=== PATIENT | male | born 1980 | race African-American/Black ===

== ENCOUNTER 2019-06-07 10:19 | Inpatient (IN) ==
[2019-06-07] MEDS ORDERED: PANTOPRAZOLE 40 MG VIAL IV STA (10:51)
[2019-06-07] MEDS ORDERED: ALBUTEROL/IPRATROPIUM 3 ML NEB RESP TX STA (10:51)
[2019-06-07 12:20] LABS: Basophils # 0.1 10*3/uL (0.0-0.2); Eosinophils # 0.2 10*3/uL (0.0-0.87); Eosinophils % 2.8 % (0.00-10.9); Hematocrit 31.5 VOL% (42.0-52.0); Hemoglobin 9.8 GM/DL (14.0-18.0); Immature Granulocytes % 0.2 %; Immature Granulocytes Absolute 0.01 #; Lymphocytes # 1.7 10*3/uL (1.4-4.0); Lymphocytes % 27.2 % (21.2-54.2); Mean Corpuscular HGB Conc 31.1 GM/DL (32-36); Mean Corpuscular Volume 89.5 FL (87-102); Mean Platelet Volume 10.9 FL (9.6-12.0); Monocytes % 10.3 % (1.7-12.7); Neutrophils % 58.5 % (38.7-73.9); Platelet Count 240 T/CUMM (130-400); Red Blood Count 3.52 MC/CUMM (3.8-5.5); Red Cell Distribution Width 14.9 % (9.3-17.3); White Blood Count 6.1 T/CUMM (4-12)
[2019-06-07 12:21] LABS: Apearance,Urine CLEAR (Clear); Bilirubin,Urine Negative (Negative); Blood, Urine Negative (Negative); Glucose,Urine (UA) 150 mg/dL (Negative); Ketones,Urine Negative (Negative); Mucus,Urine Occasional /LPF (Occasional); Nitrite,Urine Negative (Negative); Protein,Urine Negative; RBC,Urine 2 /HPF (0-4); Squamous Epithelial Cell,Urine Occasional /HPF (0-10); Urine Color Yellow (Yellow); Urine Specific Gravity 1.017 (1.001-1.035); Urine Urobilinogen < 2.0 EU/DL (0.2-1.0); WBC,Urine <1 /HPF (0-6)
[2019-06-07 12:25] LABS: Barbiturates Screen,Urine Negative (Negative); Benzodiazepines Screen,Urine Positive (Negative); Cannabinoid Screen,Urine Positive (Negative); Opiate Screen,Urine Negative (Negative); Phencyclidine Screen,Urine Negative (Negative)
[2019-06-07 12:49] LABS: Alanine Aminotransferase 27 U/L (16-61); Albumin 2.6 G/DL (3.4-5.0); Alkaline Phosphatase 50 U/L (45-117); Aspartate Amino Transferase 13 U/L (0-37); Bilirubin,Total < 0.39 MG/DL (0.2-1.0); Blood Urea Nitrogen 12 MG/DL (7-18); Calcium 7.5 MG/DL (8.5-10.1); Estimated Glom Filtration Rate 162 ML/MIN; Glucose 170 MG/DL (74-106); Total Protein 5.5 G/DL (6.4-8.3)
[2019-06-07] MEDS ORDERED: ACETAMINOPHEN 325 MG TABLET PO PRN (14:19)
[2019-06-07] MEDS ORDERED: ONDANSETRON 4 MG/2 ML VIAL IV PRN (14:19)
[2019-06-07] MEDS ORDERED: ALBUTEROL 2.5 MG/3 ML NEB RESP TX PRN (14:27)
[2019-06-07] MEDS ORDERED: cefTRIAXone 1,000 MG in SYRINGE 1 EACH IV SCH (14:30)
[2019-06-07] MEDS ORDERED: AZITHROMYCIN INJ 500 MG in SODIUM CHLORIDE 0.9% 250 ML IV SCH (14:30)
[2019-06-07] MEDS ORDERED: ENOXAPARIN 40 MG/0.4 ML SYRINGE SUBCUT SCH (15:00)
[2019-06-07 15:19] LABS: Risk Ratio 3.22; Thyroid Stimulating Hormone 1.03 uIU/ml (0.358-3.74)
[2019-06-07] MEDS ORDERED: SODIUM CHLORIDE 0.9% 100 ML IV ONE (15:28)
[2019-06-07 15:45] LABS: % Iron Saturation 6.6 % (18-50)
[2019-06-07] MEDS ORDERED: FUROSEMIDE 40 MG/4 ML VIAL IV SCH (16:00)
[2019-06-07] MEDS: BENZONATATE 100 MG CAPSULE PO SCH ×2 (16:49→21:48)
[2019-06-07] MEDS: methylPREDNISolone SOD SUC 125 MG/2 ML VIAL IV SCH (17:01)
[2019-06-07] MEDS: hydrALAZINE 20 MG/1 ML VIAL IV PRN (17:06)
[2019-06-07 17:20] LABS: Basophils # 0.1 10*3/uL (0.0-0.2); Basophils % 0.9 % (0.0-0.8); Eosinophils # 0.2 10*3/uL (0.0-0.87); Eosinophils % 2.8 % (0.00-10.9); Hematocrit 32.2 VOL% (42.0-52.0); Hemoglobin 9.8 GM/DL (14.0-18.0); Immature Granulocytes % 0.7 %; Immature Granulocytes Absolute 0.04 #; Lymphocytes # 1.6 10*3/uL (1.4-4.0); Lymphocytes % 28.7 % (21.2-54.2); Mean Corpuscular HGB Conc 30.4 GM/DL (32-36); Mean Platelet Volume 11.5 FL (9.6-12.0); Monocytes % 11.9 % (1.7-12.7); Platelet Count 235 T/CUMM (130-400); Red Blood Count 3.54 MC/CUMM (3.8-5.5); Red Cell Distribution Width 15.1 % (9.3-17.3); White Blood Count 5.7 T/CUMM (4-12)
[2019-06-07 17:58] LABS: Folate 10.4 NG/ML (5.4-24.0); Vitamin B12 300 PG/ML (211-911)
[2019-06-07 18:17] LABS: Sedimentation Rate-Westergren 22 MM/HR (0-15)
[2019-06-07] MEDS: ALBUTEROL 2.5 MG/3 ML NEB RESP TX SCH (18:20)
[2019-06-07 23:12] LABS: Hematocrit 33.7 VOL% (42.0-52.0); Hemoglobin 10.7 GM/DL (14.0-18.0)
[2019-06-08] MEDS: ALBUTEROL 2.5 MG/3 ML NEB RESP TX SCH ×2 (00:06→07:34)
[2019-06-08] MEDS: hydrALAZINE 20 MG/1 ML VIAL IV PRN (00:54)
[2019-06-08] MEDS: methylPREDNISolone SOD SUC 125 MG/2 ML VIAL IV SCH (03:54)
[2019-06-08 06:21] LABS: Basophils % 0.2 % (0.0-0.8); Hematocrit 34.8 VOL% (42.0-52.0); Immature Granulocytes % 0.4 %; Immature Granulocytes Absolute 0.04 #; Lymphocytes # 0.7 10*3/uL (1.4-4.0); Lymphocytes % 7.2 % (21.2-54.2); Mean Corpuscular HGB Conc 31.6 GM/DL (32-36); Mean Corpuscular Volume 87.9 FL (87-102); Mean Platelet Volume 11.5 FL (9.6-12.0); Monocytes % 0.6 % (1.7-12.7); Neutrophils % 91.6 % (38.7-73.9); Platelet Count 225 T/CUMM (130-400); Red Blood Count 3.96 MC/CUMM (3.8-5.5); Red Cell Distribution Width 14.7 % (9.3-17.3); White Blood Count 9.4 T/CUMM (4-12)
[2019-06-08 06:41] LABS: Lymphocytes 8 % (20-55); Platelet Estimate Adequate; Segmented Neutrophils 91 % (50-85); Total Cells Counted 100
[2019-06-08 06:42] LABS: Hypochromasia 1+
[2019-06-08 06:54] LABS: Calcium 8.5 MG/DL (8.5-10.1); Osmolality,Calculated 283.3 MOS/KG (273-304)
[2019-06-08 07:48] VITALS: BP 170/118
[2019-06-08] MEDS ORDERED: PANTOPRAZOLE 40 MG TABLET PO SCH (09:00)
[2019-06-09] MEDS ORDERED: AZITHROMYCIN 250 MG TABLET PO SCH (09:00)
[2019-06-09 09:13] LABS: Hemoglobin A1 (Alkaline) 98.2 % (96.5-98.5); Hemoglobin A2 (Alkaline) 1.8 % (1.5-3.5)
== END 2019-06-08 09:45 | disposition left against medical advice (07) | DRG 377 ==
LOC: N.ED 10:19 → N.EDINP 14:19 → N.5E 14:57
PROVIDERS: ADMIT Internal Medicine; ATTEND Internal Medicine

== ENCOUNTER 2019-06-22 16:00 | Inpatient (IN) ==
[2019-06-22] MEDS ORDERED: methylPREDNISolone SOD SUC 125 MG/2 ML VIAL IV STA (16:41)
[2019-06-22] MEDS ORDERED: NITROGLYCERIN 2% OINT 1 INCH/GM PACK TOP STA (16:41)
[2019-06-22] MEDS ORDERED: FUROSEMIDE 100 MG/10 ML VIAL IV STA (16:41)
[2019-06-22] MEDS ORDERED: hydrALAZINE 20 MG/1 ML VIAL IV STA (16:41)
[2019-06-22] MEDS ORDERED: cefTRIAXone 1,000 MG in SODIUM CHLORIDE 0.9% 100 ML IV STA (16:41)
[2019-06-22] MEDS ORDERED: AZITHROMYCIN INJ 500 MG in SODIUM CHLORIDE 0.9% 250 ML IV STA (16:41)
[2019-06-22] MEDS ORDERED: ALBUTEROL 2.5 MG/3 ML NEB RESP TX SCH (17:00)
[2019-06-22 17:18] LABS: ABG Base Excess 4.2 MMOL/L (-2.5-2.5); ABG HCO3 28.2 MMOL/L (20-26); ABG Oxygen Saturation 98.9 % (95-100); ABG PCO2 44.1 MM HG (35-48); ABG PH 7.428 (7.35-7.45); ABG TCO2 26.2 MMOL/L (23-27)
[2019-06-22 18:05] LABS: Basophils # 0.1 10*3/uL (0.0-0.2); Basophils % 0.6 % (0.0-0.8); Eosinophils # 0.3 10*3/uL (0.0-0.87); Hematocrit 33.6 VOL% (42.0-52.0); Hemoglobin 10.2 GM/DL (14.0-18.0); Immature Granulocytes % 0.5 %; Immature Granulocytes Absolute 0.08 #; Lymphocytes % 13.7 % (21.2-54.2); Mean Corpuscular HGB Conc 30.4 GM/DL (32-36); Mean Corpuscular Volume 87.5 FL (87-102); Mean Platelet Volume 10.8 FL (9.6-12.0); Monocytes % 8.6 % (1.7-12.7); Neutrophils % 74.6 % (38.7-73.9); Platelet Count 269 T/CUMM (130-400); Red Blood Count 3.84 MC/CUMM (3.8-5.5); Red Cell Distribution Width 14.8 % (9.3-17.3); White Blood Count 14.7 T/CUMM (4-12)
[2019-06-22 18:16] LABS: INR 1.1; Partial Thromboplastin Time 23.3 SECS (20.8-36.0)
[2019-06-22 18:23] LABS: Alanine Aminotransferase 30 U/L (16-61); Albumin 2.9 G/DL (3.4-5.0); Alkaline Phosphatase 65 U/L (45-117); Aspartate Amino Transferase 11 U/L (0-37); Blood Urea Nitrogen 13 MG/DL (7-18); Calcium 8.2 MG/DL (8.5-10.1); Estimated Glom Filtration Rate 147 ML/MIN; Glucose 151 MG/DL (74-106); Osmolality,Calculated 277.7 MOS/KG (273-304); Total Protein 6.4 G/DL (6.4-8.3)
[2019-06-22 18:24] LABS: Troponin I 0.051 NG/ML (0.00-0.045)
[2019-06-22 19:23] LABS: Apearance,Urine CLEAR (Clear); Bilirubin,Urine Negative (Negative); Blood, Urine Negative (Negative); Glucose,Urine (UA) Negative (Negative); Ketones,Urine Negative (Negative); Nitrite,Urine Negative (Negative); Protein,Urine Negative; RBC,Urine 1 /HPF (0-4); Squamous Epithelial Cell,Urine Occasional /HPF (0-10); Urine Color Straw (Yellow); Urine Specific Gravity 1.005 (1.001-1.035); Urine Urobilinogen < 2.0 EU/DL (0.2-1.0)
[2019-06-22 19:31] LABS: Barbiturates Screen,Urine Negative (Negative); Benzodiazepines Screen,Urine Negative (Negative); Cannabinoid Screen,Urine Positive (Negative); Opiate Screen,Urine Negative (Negative); Phencyclidine Screen,Urine Negative (Negative)
[2019-06-22] MEDS ORDERED: POTASSIUM CHLORIDE 20 MEQ TABLET PO STA (20:50)
[2019-06-22] MEDS ORDERED: GLUCAGON 1 MG VIAL IM PRN (22:15)
[2019-06-22] MEDS ORDERED: ALBUTEROL 2.5 MG/3 ML NEB RESP TX PRN (22:15)
[2019-06-22] MEDS ORDERED: ONDANSETRON 4 MG/2 ML VIAL IV PRN (22:15)
[2019-06-22] MEDS ORDERED: POTASSIUM CHLORIDE 20 MEQ TABLET PO PRN (22:15)
[2019-06-22] MEDS ORDERED: DOCUSATE SODIUM 100 MG CAPSULE PO PRN (22:15)
[2019-06-22] MEDS ORDERED: DEXTROSE 50% 25 GM/50 ML VIAL IV PRN (22:15)
[2019-06-22] MEDS ORDERED: MAGNESIUM SULF RIDER 4 GM in PREMIX 1 EACH IV PRN (22:15)
[2019-06-22] MEDS ORDERED: hydrALAZINE 20 MG/1 ML VIAL IV PRN (22:15)
[2019-06-22] MEDS ORDERED: MAGNESIUM SULF RIDER 2 GM in PREMIX 1 EACH IV PRN (22:15)
[2019-06-22] MEDS ORDERED: ACETAMINOPHEN 325 MG TABLET PO PRN (22:15)
[2019-06-22] MEDS ORDERED: methylPREDNISolone SOD SUC 40 MG/1 ML VIAL ONE (22:54)
[2019-06-22] MEDS: carvediloL 12.5 MG TABLET PO SCH (23:04)
[2019-06-22] MEDS: INSULIN REGULAR 100 UNIT/ML SUBCUT SCH (23:04)
[2019-06-22] MEDS: guaiFENesin/DM ER 600-30 MG TABLET PO SCH (23:04)
[2019-06-22] MEDS: lisinopriL 10 MG TABLET PO SCH (23:04)
[2019-06-22] MEDS: ATORVASTATIN 10 MG TABLET PO SCH (23:04)
[2019-06-22] MEDS: ENOXAPARIN 40 MG/0.4 ML SYRINGE SUBCUT SCH (23:05)
[2019-06-22] MEDS: LEVOFLOXACIN INJ 750 MG in PREMIX 1 EACH IV SCH (23:05)
[2019-06-22] MEDS: ALBUTEROL/IPRATROPIUM 3 ML NEB RESP TX SCH (23:30)
[2019-06-23 01:53] LABS: Basophils % 0.3 % (0.0-0.8); Hematocrit 33.6 VOL% (42.0-52.0); Hemoglobin 10.6 GM/DL (14.0-18.0); Immature Granulocytes % 0.7 %; Lymphocytes # 0.3 10*3/uL (1.4-4.0); Lymphocytes % 2.5 % (21.2-54.2); Mean Corpuscular HGB Conc 31.5 GM/DL (32-36); Mean Corpuscular Volume 85.7 FL (87-102); Monocytes % 0.6 % (1.7-12.7); NRBC # 0.02 10*3/uL; Neutrophils % 95.9 % (38.7-73.9); Platelet Count 279 T/CUMM (130-400); Red Blood Count 3.92 MC/CUMM (3.8-5.5); White Blood Count 13.9 T/CUMM (4-12)
[2019-06-23 02:11] LABS: % Iron Saturation 5.2 % (18-50); Calcium 8.4 MG/DL (8.5-10.1); Ferritin 43.3 ng/ml (26-388); Osmolality,Calculated 287.4 MOS/KG (273-304); Risk Ratio 2.3
[2019-06-23 02:48] LABS: Lymphocytes 4 % (20-55); Segmented Neutrophils 96 % (50-85); Total Cells Counted 100
[2019-06-23 02:49] LABS: Anisocytosis 1+; Platelet Estimate Normal; Target Cells Few
[2019-06-23 03:06] LABS: Sedimentation Rate-Westergren 15 MM/HR (0-15)
[2019-06-23 05:05] LABS: Vitamin B12 405 PG/ML (211-911)
[2019-06-23] MEDS: hydrALAZINE 20 MG/1 ML VIAL IV PRN ×3 (05:26→16:23)
[2019-06-23] MEDS: methylPREDNISolone SOD SUC 40 MG/1 ML VIAL IV SCH ×2 (05:26→17:00)
[2019-06-23] MEDS: ALBUTEROL/IPRATROPIUM 3 ML NEB RESP TX SCH ×3 (07:46→19:50)
[2019-06-23 08:44] LABS: Hemoglobin A1 (Alkaline) 97.1 % (96.5-98.5); Hemoglobin A2 (Alkaline) 2.9 % (1.5-3.5)
[2019-06-23] MEDS: ASPIRIN EC 81 MG TABLET PO SCH (08:52)
[2019-06-23] MEDS: FUROSEMIDE 40 MG/4 ML VIAL IV SCH ×2 (08:52→16:22)
[2019-06-23] MEDS: INSULIN REGULAR 100 UNIT/ML SUBCUT SCH ×4 (08:52→21:53)
[2019-06-23] MEDS: guaiFENesin/DM ER 600-30 MG TABLET PO SCH ×2 (08:52→21:54)
[2019-06-23] MEDS: carvediloL 12.5 MG TABLET PO SCH (08:52)
[2019-06-23] MEDS: lisinopriL 10 MG TABLET PO SCH (08:52)
[2019-06-23] MEDS ORDERED: lisinopriL 10 MG TABLET PO SCH (15:36)
[2019-06-23] MEDS: carvediloL 25 MG TABLET PO SCH (16:23)
[2019-06-23] MEDS: diphenhydrAMINE CAP 25 MG CAPSULE PO SCH ×2 (18:18→23:21)
[2019-06-23] MEDS: ATORVASTATIN 10 MG TABLET PO SCH (21:54)
[2019-06-23] MEDS: FERROUS SULFATE 325 MG TABLET PO SCH (21:54)
[2019-06-23] MEDS: NORTRIPTYLINE 25 MG CAPSULE PO SCH (21:54)
[2019-06-23] MEDS: RANITIDINE 150 MG TABLET PO SCH (21:54)
[2019-06-23] MEDS: ENOXAPARIN 40 MG/0.4 ML SYRINGE SUBCUT SCH ×2 (21:55→21:58)
[2019-06-23] MEDS: LEVOFLOXACIN INJ 750 MG in PREMIX 1 EACH IV SCH (23:22)
[2019-06-24] MEDS: ALBUTEROL/IPRATROPIUM 3 ML NEB RESP TX SCH ×5 (01:10→19:23)
[2019-06-24] MEDS: diphenhydrAMINE CAP 25 MG CAPSULE PO SCH ×4 (05:08→23:32)
[2019-06-24] MEDS: methylPREDNISolone SOD SUC 40 MG/1 ML VIAL IV SCH ×2 (05:08→17:14)
[2019-06-24 06:42] LABS: Basophils % 0.1 % (0.0-0.8); Hemoglobin 10.6 GM/DL (14.0-18.0); Immature Granulocytes Absolute 0.18 #; Lymphocytes # 0.7 10*3/uL (1.4-4.0); Lymphocytes % 3.9 % (21.2-54.2); Mean Corpuscular HGB Conc 31.2 GM/DL (32-36); Mean Corpuscular Volume 85.4 FL (87-102); Mean Platelet Volume 11.4 FL (9.6-12.0); Monocytes % 4.3 % (1.7-12.7); NRBC # 0.02 10*3/uL; Neutrophils % 90.7 % (38.7-73.9); Platelet Count 303 T/CUMM (130-400); Red Blood Count 3.98 MC/CUMM (3.8-5.5); Red Cell Distribution Width 14.9 % (9.3-17.3)
[2019-06-24 07:12] LABS: Calcium 8.8 MG/DL (8.5-10.1); Osmolality,Calculated 284.3 MOS/KG (273-304)
[2019-06-24 07:39] LABS: Hypochromasia 1+; Lymphocytes 1 % (20-55); Microcytosis 1+; Polychromasia Slight; Segmented Neutrophils 94 % (50-85); Total Cells Counted 100
[2019-06-24 07:40] LABS: Ovalocytes Few
[2019-06-24 07:41] LABS: Platelet Estimate Normal
[2019-06-24] MEDS ORDERED: hydrALAZINE 25 MG TABLET ONE (08:23)
[2019-06-24] MEDS: INSULIN REGULAR 100 UNIT/ML SUBCUT SCH ×4 (09:24→21:51)
[2019-06-24] MEDS: FUROSEMIDE 40 MG/4 ML VIAL IV SCH ×2 (09:28→16:16)
[2019-06-24] MEDS: guaiFENesin/DM ER 600-30 MG TABLET PO SCH ×2 (09:28→21:52)
[2019-06-24] MEDS: ASPIRIN EC 81 MG TABLET PO SCH (09:28)
[2019-06-24] MEDS: FERROUS SULFATE 325 MG TABLET PO SCH ×2 (09:28→21:51)
[2019-06-24] MEDS: carvediloL 25 MG TABLET PO SCH ×2 (09:28→16:16)
[2019-06-24] MEDS: ISOSORBIDE MONONITRATE 30 MG TABLET PO SCH (09:28)
[2019-06-24] MEDS: RANITIDINE 150 MG TABLET PO SCH ×2 (09:46→21:52)
[2019-06-24] MEDS: NORTRIPTYLINE 25 MG CAPSULE PO SCH (21:52)
[2019-06-24] MEDS: ATORVASTATIN 10 MG TABLET PO SCH (21:52)
[2019-06-24] MEDS: ENOXAPARIN 40 MG/0.4 ML SYRINGE SUBCUT SCH (21:53)
[2019-06-24] MEDS: LEVOFLOXACIN INJ 750 MG in PREMIX 1 EACH IV SCH (23:32)
[2019-06-25] MEDS: ALBUTEROL/IPRATROPIUM 3 ML NEB RESP TX SCH ×2 (00:10→07:46)
[2019-06-25] MEDS: diphenhydrAMINE CAP 25 MG CAPSULE PO SCH ×2 (05:32→12:55)
[2019-06-25] MEDS: methylPREDNISolone SOD SUC 40 MG/1 ML VIAL IV SCH (05:32)
[2019-06-25] MEDS: guaiFENesin/DM ER 600-30 MG TABLET PO SCH (09:12)
[2019-06-25] MEDS: ASPIRIN EC 81 MG TABLET PO SCH (09:12)
[2019-06-25] MEDS: RANITIDINE 150 MG TABLET PO SCH (09:12)
[2019-06-25] MEDS: INSULIN REGULAR 100 UNIT/ML SUBCUT SCH ×2 (09:12→12:55)
[2019-06-25] MEDS: FERROUS SULFATE 325 MG TABLET PO SCH (09:12)
[2019-06-25] MEDS: ISOSORBIDE MONONITRATE 30 MG TABLET PO SCH (09:13)
[2019-06-25] MEDS: FUROSEMIDE 40 MG/4 ML VIAL IV SCH (09:13)
[2019-06-25] MEDS: carvediloL 25 MG TABLET PO SCH (09:13)
[2019-06-25 12:48] VITALS: BP 128/88
[2019-06-26] MEDS ORDERED: POTASSIUM CHLORIDE 20 MEQ TABLET PO SCH (09:00)
[2019-06-26] MEDS ORDERED: FUROSEMIDE 40 MG TABLET PO SCH (09:00)
== END 2019-06-25 13:59 | disposition home or self-care (01) | DRG 291 ==
LOC: EDBD → EDUNIT# → N.ED 16:00 → N.EDINP 20:35 → N.5E 21:27
PROVIDERS: ADMIT Hospitalist; ATTEND Hospitalist

== ENCOUNTER 2020-04-17 12:50 | Inpatient (IN) ==
[2020-04-17 13:36] LABS: Basophils # 0.1 10*3/uL (0.0-0.2); Eosinophils # 0.1 10*3/uL (0.0-0.87); Eosinophils % 0.8 % (0.00-10.9); Hemoglobin 12.8 GM/DL (14.0-18.0); Immature Granulocytes % 0.3 %; Immature Granulocytes Absolute 0.02 #; Lymphocytes # 0.8 10*3/uL (1.4-4.0); Lymphocytes % 13.9 % (21.2-54.2); Mean Corpuscular HGB Conc 31.2 GM/DL (32-36); Mean Platelet Volume 11.2 FL (9.6-12.0); Monocytes % 9.8 % (1.7-12.7); Neutrophils % 74.2 % (38.7-73.9); Platelet Count 223 T/CUMM (130-400); Red Blood Count 5.06 MC/CUMM (3.8-5.5); Red Cell Distribution Width 17.3 % (9.3-17.3); White Blood Count 5.9 T/CUMM (4-12)
[2020-04-17 13:51] LABS: INR 1.3; PT Patient Result 13.4 SECS (9.8-11.9); Partial Thromboplastin Time 27.5 SECS (23.9-33.8)
[2020-04-17 13:57] LABS: Albumin 3.1 G/DL (3.4-5.0); Bilirubin,Total 1.3 MG/DL (0.2-1.0); Calcium 8.9 MG/DL (8.5-10.1); Total Protein 7.5 G/DL (6.4-8.3)
[2020-04-17] MEDS ORDERED: amLODIPine 5 MG TABLET PO STA (14:48)
[2020-04-17] MEDS ORDERED: FUROSEMIDE 40 MG/4 ML VIAL IV STA (14:48)
[2020-04-17] MEDS ORDERED: hydrALAZINE 20 MG/1 ML VIAL IV STA (14:49)
[2020-04-17] MEDS ORDERED: LABETALOL 20 MG/4 ML SYRINGE IV STA (16:13)
[2020-04-17] MEDS ORDERED: LABETALOL 20 MG/4 ML SYRINGE IV ONE (16:14)
[2020-04-17] MEDS ORDERED: ONDANSETRON 4 MG/2 ML VIAL IV PRN (16:28)
[2020-04-17] MEDS ORDERED: ALBUTEROL 2.5 MG/3 ML NEB RESP TX PRN (16:28)
[2020-04-17] MEDS: PANTOPRAZOLE 40 MG TABLET PO SCH (18:26)
[2020-04-17] MEDS: carvediloL 25 MG TABLET PO SCH (18:26)
[2020-04-17] MEDS: ISOSORBIDE MONONITRATE 30 MG TABLET PO SCH (18:26)
[2020-04-17] MEDS: INSULIN LISPRO 100 UNIT/ML SUBCUT SCH (20:30)
[2020-04-17] MEDS: FERROUS SULFATE 325 MG TABLET PO SCH (20:56)
[2020-04-17] MEDS ORDERED: FUROSEMIDE 40 MG/4 ML VIAL IV ONE (21:00)
[2020-04-18] MEDS: hydrALAZINE 20 MG/1 ML VIAL IV PRN (04:57)
[2020-04-18 05:26] LABS: Albumin 2.8 G/DL (3.4-5.0); Bilirubin,Total 1.6 MG/DL (0.2-1.0); Calcium 8.6 MG/DL (8.5-10.1); Osmolality,Calculated 275.7 MOS/KG (273-304); Total Protein 7.4 G/DL (6.4-8.3)
[2020-04-18] MEDS ORDERED: ACETAMINOPHEN 325 MG TABLET PO PRN (05:27)
[2020-04-18] MEDS: INSULIN LISPRO 100 UNIT/ML SUBCUT SCH ×4 (07:35→20:10)
[2020-04-18] MEDS: FERROUS SULFATE 325 MG TABLET PO SCH ×2 (08:12→20:10)
[2020-04-18] MEDS: PANTOPRAZOLE 40 MG TABLET PO SCH (08:12)
[2020-04-18] MEDS: carvediloL 25 MG TABLET PO SCH ×2 (08:12→17:15)
[2020-04-18] MEDS: ISOSORBIDE MONONITRATE 30 MG TABLET PO SCH (08:12)
[2020-04-18] MEDS ORDERED: FUROSEMIDE 40 MG/4 ML VIAL IV ONE (08:12)
[2020-04-18] MEDS ORDERED: POTASSIUM CHLORIDE 20 MEQ TABLET PO PRN (08:15)
[2020-04-18] MEDS: FUROSEMIDE 40 MG TABLET PO SCH ×2 (08:35→20:10)
[2020-04-18] MEDS: ALBUTEROL/IPRATROPIUM 3 ML NEB RESP TX SCH ×3 (11:00→19:36)
[2020-04-18] MEDS: DEXAMETHASONE 4 MG/1 ML VIAL IV SCH (11:45)
[2020-04-18] MEDS: POTASSIUM CHLORIDE 20 MEQ TABLET PO SCH ×2 (11:46→17:14)
[2020-04-18] MEDS: AZITHROMYCIN INJ 500 MG in SODIUM CHLORIDE 0.9% 250 ML IV SCH (18:03)
[2020-04-19] MEDS: ALBUTEROL/IPRATROPIUM 3 ML NEB RESP TX SCH ×2 (00:15→07:55)
[2020-04-19] MEDS: POTASSIUM CHLORIDE 20 MEQ TABLET PO SCH (00:46)
[2020-04-19] MEDS: hydrALAZINE 20 MG/1 ML VIAL IV PRN (03:19)
[2020-04-19 04:18] LABS: Basophils % 0.4 % (0.0-0.8); Eosinophils # 0.2 10*3/uL (0.0-0.87); Hematocrit 42.6 VOL% (42.0-52.0); Hemoglobin 13.3 GM/DL (14.0-18.0); Immature Granulocytes % 0.5 %; Immature Granulocytes Absolute 0.03 #; Lymphocytes # 0.7 10*3/uL (1.4-4.0); Lymphocytes % 12.3 % (21.2-54.2); Mean Corpuscular HGB Conc 31.2 GM/DL (32-36); Mean Corpuscular Volume 79.5 FL (87-102); Mean Platelet Volume 11.4 FL (9.6-12.0); Neutrophils % 76.8 % (38.7-73.9); Platelet Count 241 T/CUMM (130-400); Red Blood Count 5.36 MC/CUMM (3.8-5.5); Red Cell Distribution Width 17.4 % (9.3-17.3); White Blood Count 5.7 T/CUMM (4-12)
[2020-04-19 04:39] LABS: Ferritin 74.2 ng/ml (26-388)
[2020-04-19 04:56] LABS: Hypochromasia 1+; Ovalocytes Slight; Platelet Estimate Adequate
[2020-04-19] MEDS: INSULIN LISPRO 100 UNIT/ML SUBCUT SCH ×4 (08:17→20:46)
[2020-04-19] MEDS ORDERED: MAGNESIUM SULF RIDER 2 GM in PREMIX 1 EACH IV ONE (08:18)
[2020-04-19] MEDS: carvediloL 25 MG TABLET PO SCH ×2 (09:57→17:57)
[2020-04-19] MEDS: DEXAMETHASONE 4 MG/1 ML VIAL IV SCH (09:57)
[2020-04-19] MEDS: FERROUS SULFATE 325 MG TABLET PO SCH ×2 (09:59→20:46)
[2020-04-19] MEDS: FUROSEMIDE 40 MG TABLET PO SCH ×2 (09:59→20:46)
[2020-04-19] MEDS: PANTOPRAZOLE 40 MG TABLET PO SCH (09:59)
[2020-04-19] MEDS: ISOSORBIDE MONONITRATE 30 MG TABLET PO SCH (09:59)
[2020-04-19] MEDS: DILTIAZEM 30 MG TABLET PO SCH ×2 (12:40→17:57)
[2020-04-19] MEDS: ALBUTEROL INHALER 18 GM INH SCH ×3 (13:09→18:03)
[2020-04-19] MEDS: AZITHROMYCIN INJ 500 MG in SODIUM CHLORIDE 0.9% 250 ML IV SCH (17:57)
[2020-04-20] MEDS: DILTIAZEM 30 MG TABLET PO SCH ×2 (00:34→05:44)
[2020-04-20] MEDS: ALBUTEROL INHALER 18 GM INH SCH ×3 (00:35→12:31)
[2020-04-20] MEDS: DEXAMETHASONE 4 MG/1 ML VIAL IV SCH (08:37)
[2020-04-20] MEDS: ISOSORBIDE MONONITRATE 30 MG TABLET PO SCH (08:38)
[2020-04-20] MEDS: PANTOPRAZOLE 40 MG TABLET PO SCH (08:38)
[2020-04-20] MEDS: carvediloL 25 MG TABLET PO SCH (08:39)
[2020-04-20] MEDS: FUROSEMIDE 40 MG TABLET PO SCH (08:39)
[2020-04-20] MEDS: FERROUS SULFATE 325 MG TABLET PO SCH (08:39)
[2020-04-20] MEDS: INSULIN LISPRO 100 UNIT/ML SUBCUT SCH ×2 (08:41→11:53)
[2020-04-20] MEDS ORDERED: DILTIAZEM CD 180 MG CAPSULE PO SCH (09:00)
[2020-04-20 11:29] VITALS: BP 151/91
== END 2020-04-20 13:02 | disposition home or self-care (01) | DRG 194 ==
LOC: N.ED 12:50 → SUATTDRO 16:28 → N.EDINP 16:28 → N.CC 18:10 → N.2E 04-19 12:59
PROVIDERS: ADMIT Internal Medicine; ATTEND Internal Medicine Geriatric Medicine